=== PATIENT | female | born 2000 | race Caucasian/White ===

== ENCOUNTER 2020-09-04 18:30 | Emergency (ER) | payer OTHER ==
[~2020-09-04] VITALS: Ht 157.5 cm; Wt 64.7 kg
[2020-09-04 22:11] LABS: BASO # 0.1 10^3/uL (0.0-0.2); BASO % 0.5 % (0.0-1.0); EOS # 0.1 10^3/uL (0.0-0.5); EOS % 0.9 % (0.0-3.0); HEMATOCRIT 45.1 % (36.0-47.0); HEMOGLOBIN 14.8 g/dl (12.0-15.5); LYMPH # 2.2 10^3/uL (1.5-5.0); LYMPH % 19.9 % (24.0-44.0); MEAN CORPUSCULAR HEMOGLOBIN 30.8 pg (27.0-33.0); MEAN CORPUSCULAR HGB CONC 32.8 g/dl (32.0-36.5); MEAN CORPUSCULAR VOLUME 93.8 fl (80.0-96.0); MONO # 0.7 10^3/uL (0.0-0.8); MONO % 6.2 % (2.0-8.0); NEUTROPHILS # 7.8 10^3/uL (1.5-8.5); NEUTROPHILS % 71.9 % (36.0-66.0); PLATELET COUNT, AUTOMATED 283 10^3/uL (150-450); RED BLOOD COUNT 4.81 10^6/uL (4.00-5.40); WHITE BLOOD COUNT 10.8 10^3/uL (4.0-10.0)
[2020-09-04 22:30] LABS: HCG, SERUM QUALITATIVE NEGATIVE (NEGATIVE)
[2020-09-04 22:36] LABS: ALT/SGPT 26 U/L (12-78); BILIRUBIN,DIRECT 0.1 MG/DL (0.0-0.2); BILIRUBIN,TOTAL 0.3 MG/DL (0.2-1.0); BLOOD UREA NITROGEN 14 MG/DL (7-18); CALCIUM LEVEL 9.4 MG/DL (8.5-10.1); CARBON DIOXIDE LEVEL 31 MEQ/L (21-32); CHLORIDE LEVEL 108 MEQ/L (98-107); CREATININE FOR GFR 0.85 MG/DL (0.55-1.30); GLUCOSE, FASTING 84 MG/DL (70-100); LIPASE 129 U/L (73-393); SODIUM LEVEL 144 MEQ/L (136-145); TOTAL PROTEIN 7.5 GM/DL (6.4-8.2)
[2020-09-04 23:35] VITALS: BP 122/79
== END 2020-09-05 00:12 | disposition home or self-care (01) ==
LOC: M ED 18:30
DX: N93.9 Abnormal uterine and vaginal bleeding, unspecified (principal)

== ENCOUNTER 2020-09-05 09:27 | Emergency (ER) | payer OTHER ==
[~2020-09-05] VITALS: Ht 157.5 cm; Wt 65.3 kg
[2020-09-05 11:49] LABS: BASO % 0.4 % (0.0-1.0); EOS # 0.1 10^3/uL (0.0-0.5); EOS % 0.6 % (0.0-3.0); HEMOGLOBIN 14.6 g/dl (12.0-15.5); LYMPH # 1.7 10^3/uL (1.5-5.0); LYMPH % 15.8 % (24.0-44.0); MEAN CORPUSCULAR HEMOGLOBIN 31.1 pg (27.0-33.0); MEAN CORPUSCULAR HGB CONC 33.2 g/dl (32.0-36.5); MEAN CORPUSCULAR VOLUME 93.6 fl (80.0-96.0); MONO # 0.7 10^3/uL (0.0-0.8); MONO % 6.8 % (2.0-8.0); NEUTROPHILS # 7.9 10^3/uL (1.5-8.5); NEUTROPHILS % 75.6 % (36.0-66.0); PLATELET COUNT, AUTOMATED 287 10^3/uL (150-450); WHITE BLOOD COUNT 10.4 10^3/uL (4.0-10.0)
[2020-09-05 12:15] LABS: BLOOD UREA NITROGEN 16 MG/DL (7-18); CALCIUM LEVEL 9.3 MG/DL (8.5-10.1); CARBON DIOXIDE LEVEL 30 MEQ/L (21-32); CHLORIDE LEVEL 108 MEQ/L (98-107); CREATININE FOR GFR 0.83 MG/DL (0.55-1.30); GLUCOSE, FASTING 64 MG/DL (70-100); HCG, SERUM QUANTITATIVE < 1.0 MIU/ML; POTASSIUM SERUM 4.8 MEQ/L (3.5-5.1); SODIUM LEVEL 145 MEQ/L (136-145)
--- NOTE | 2020-09-05 13:19 | REP ---
INDICATION: vaginal bleeding, pelvic pain COMPARISON: None. TECHNIQUE: Transabdominal pelvic ultrasound followed by transvaginal examination for better evaluation of the endometrium and adnexa with color Doppler evaluation of the ovaries. FINDINGS: Bladder is empty. Normal anteverted uterus measures 6.9 x 3.5 x 3.0 cm. The endometrial complex measures 6 mm thickness. No discrete uterine or endometrial abnormalities are appreciated. Bilateral ovaries are normal in appearance and vascularity without evidence for torsion. Right ovary measures 4.0 x 1.5 x 2.9 cm; R I = 0.56. Left ovary measures 4.4 x 2.0 x 2.4 cm; R I = 0.52. Small amount of free fluid in the pelvis is nonspecific and likely physiologic. IMPRESSION: Essentially normal pelvic ultrasound. <Electronically signed by Luis Miguel Walsh > 09/05/20 [id number]
[2020-09-05 14:06] LABS: GC DNA AMPLIFICATION NEGATIVE (NEGATIVE)
[2020-09-05 17:42] VITALS: BP 142/78
== END 2020-09-05 17:44 | disposition home or self-care (01) ==
LOC: M ED 09:27
DX: N93.9 Abnormal uterine and vaginal bleeding, unspecified (principal); R10.2 Pelvic and perineal pain

== ENCOUNTER 2020-10-24 15:27 | Emergency (ER) | payer OTHER ==
[~2020-10-24] VITALS: Ht 160 cm; Wt 63.6 kg
[2020-10-24 17:54] LABS: GC DNA AMPLIFICATION NEGATIVE (NEGATIVE)
[2020-10-24] MEDS ORDERED: PYRI1TAB5 PO (18:49)
[2020-10-24] MEDS ORDERED: MACR100C43 PO (18:49)
[2020-10-24] MEDS ORDERED: PHENAZOPYRIDINE 100 MG TAB PO ONE (18:50)
[2020-10-24] MEDS ORDERED: NITROFURANTOIN (MACROBID) 100 MG CAP PO ONE (18:50)
[2020-10-24 19:01] VITALS: BP 107/78
== END 2020-10-24 19:04 | disposition home or self-care (01) ==
LOC: M ED 15:27
DX: N39.0 Urinary tract infection, site not specified (principal)

== ENCOUNTER 2020-11-10 09:23 | Emergency (ER) | payer OTHER ==
[~2020-11-10] VITALS: Ht 157.5 cm; Wt 66.7 kg
[~2020-11-10 09:23] MED LIST: MACR100C43 PO; PYRI1TAB5 PO
[2020-11-10 11:05] LABS: BASO # 0.1 10^3/uL (0.0-0.2); BASO % 0.5 % (0.0-1.0); EOS # 0.1 10^3/uL (0.0-0.5); EOS % 0.9 % (0.0-3.0); LYMPH # 1.7 10^3/uL (1.5-5.0); LYMPH % 17.9 % (24.0-44.0); MEAN CORPUSCULAR HEMOGLOBIN 30.3 pg (27.0-33.0); MEAN CORPUSCULAR HGB CONC 32.6 g/dl (32.0-36.5); MEAN CORPUSCULAR VOLUME 93.1 fl (80.0-96.0); MONO # 0.7 10^3/uL (0.0-0.8); MONO % 7.9 % (2.0-8.0); NEUTROPHILS # 6.8 10^3/uL (1.5-8.5); NEUTROPHILS % 72.1 % (36.0-66.0); PLATELET COUNT, AUTOMATED 293 10^3/uL (150-450); RED BLOOD COUNT 4.62 10^6/uL (4.00-5.40); WHITE BLOOD COUNT 9.4 10^3/uL (4.0-10.0)
[2020-11-10 11:06] LABS: APPEARANCE, URINE HAZY (CLEAR); BACTERIA, URINE AUTO NEGATIVE (NEGATIVE); BILIRUBIN, URINE AUTO NEGATIVE (NEGATIVE); BLOOD, URINE BLOOD NEGATIVE (NEGATIVE); COLOR, URINE YELLOW (YELLOW); GLUCOSE, URINE (UA) AUTO NEGATIVE (NEGATIVE); KETONE, URINE AUTO NEGATIVE (NEGATIVE); LEUKOCYTE ESTERASE, URINE AUTO 1+ (NEGATIVE); MUCUS, URINE SMALL (NEGATIVE); NITRITE, URINE AUTO NEGATIVE (NEGATIVE); PROTEIN, URINE AUTO NEGATIVE (NEGATIVE); RBC, URINE AUTO 1 /HPF (0-3); SPECIFIC GRAVITY URINE AUTO 1.024 (1.002-1.035); SQUAMOUS EPITHELIAL CELL UR AU 9 /HPF (0-6); UROBILINOGEN, URINE AUTO 0.2 mg/dL (0.0-2.0); WBC, URINE AUTO 1 /HPF (0-3)
[2020-11-10 12:07] VITALS: BP 114/66
== END 2020-11-10 12:16 | disposition home or self-care (01) ==
LOC: M ED 09:23
DX: O26.91 Pregnancy related conditions, unspecified, first trimester (principal); Z3A.00 Weeks of gestation of pregnancy not specified

== ENCOUNTER → 2020-11-12 | Outpatient (CLI) | payer OTHER | LOC: M LAB 11:29 | PROVIDERS: ATTEND Physician Assistant | DX: Z32.00 Encounter for pregnancy test, result unknown (principal) ==

== ENCOUNTER 2020-11-27 10:10 | Emergency (ER) | payer OTHER ==
[~2020-11-27] VITALS: Ht 157.5 cm; Wt 65.5 kg
[2020-11-27 12:37] LABS: BASO % 0.3 % (0.0-1.0); EOS % 0.4 % (0.0-3.0); HEMATOCRIT 41.8 % (36.0-47.0); HEMOGLOBIN 14.1 g/dl (12.0-15.5); LYMPH # 1.7 10^3/uL (1.5-5.0); LYMPH % 15.9 % (24.0-44.0); MEAN CORPUSCULAR HEMOGLOBIN 30.7 pg (27.0-33.0); MEAN CORPUSCULAR HGB CONC 33.7 g/dl (32.0-36.5); MEAN CORPUSCULAR VOLUME 90.9 fl (80.0-96.0); MONO # 0.8 10^3/uL (0.0-0.8); NEUTROPHILS # 8.3 10^3/uL (1.5-8.5); NEUTROPHILS % 75.7 % (36.0-66.0); PLATELET COUNT, AUTOMATED 298 10^3/uL (150-450)
--- NOTE | 2020-11-27 14:00 | REP ---
INDICATION: pelvic pain. COMPARISON: None. TECHNIQUE: Emergency 1st trimester obstetric sonography. Transabdominal and transvaginal scanning are included. FINDINGS: Uterine dimensions are 7.3 x 4.9 x 7.3 cm. A single living intrauterine gestation is seen. [place]-rump length of the embryonic pole is 5.3 mm. This corresponds with a gestational age estimate of 6 weeks 3 days. heart rate is recorded at 132 beats per minute. Mean sac size diameter is 20 mm. No complication is identified. Normal ovaries are seen bilaterally. Right ovary measures 3.4 x 2.3 x 1.7 cm. It is Doppler flow is present resistive index 0.58. The left ovary measures 2.8 x 1.7 x 2.5 cm. It is Doppler flow is normal with resistive index 0.47. IMPRESSION: Single living intrauterine gestation at 6 weeks 3 days by crown-rump length. KASH by sonography July 18, 2021. No complication is seen. heart rate is recorded at 132 beats per minute. <Electronically signed by Carlitos Wilson > 11/27/20 [id number]
[2020-11-27 15:03] VITALS: BP 110/71
== END 2020-11-27 15:05 | disposition home or self-care (01) ==
LOC: M ED 10:10
DX: O26.891 Other specified pregnancy related conditions, first trimester (principal); Z3A.01 Less than 8 weeks gestation of pregnancy

== ENCOUNTER 2021-04-07 22:40 | Outpatient (CLI) | payer OTHER ==
[~2021-04-07] VITALS: Ht 157.5 cm; Wt 68.9 kg
[2021-04-07 23:08] VITALS: BP 127/70
[2021-04-08] MEDS ORDERED: CYCLOBENZAPRINE 10MG TABLET PO ONE (02:10)
== END 2021-04-08 02:34 | disposition home or self-care (01) ==
LOC: M LDO 22:40
PROVIDERS: ATTEND Obstetrics & Gynecology
DX: O26.892 Other specified pregnancy related conditions, second trimester (principal); M54.31 Sciatica, right side; Z3A.26 26 weeks gestation of pregnancy; R25.2 Cramp and spasm
CPT/HCPCS: 59025; G0378; G0463

== ENCOUNTER 2021-05-19 15:01 | Outpatient (CLI) | payer OTHER ==
[~2021-05-19] VITALS: Ht 157.5 cm; Wt 70.8 kg
[2021-05-19 15:13] VITALS: BP 135/82
[2021-05-19] MEDS ORDERED: PRENTAB9 PO (15:23)
[2021-05-19 16:12] VITALS: BP 132/75
[2021-05-19] MEDS ORDERED: ONDANSETRON 4MG/2ML VIAL IV PRN (16:25)
[2021-05-19] MEDS ORDERED: PENICILLIN G POTASSIUM IV 5 MU in D5W MINI-BAG PLUS 100 ML IV ONE (16:45)
[2021-05-19] MEDS ORDERED: MAG SULF IV ONE (16:45)
[2021-05-19] MEDS ORDERED: BETAMETHASONE SOLUSPAN 6MG/ML 5ML VIAL (J0702 PER 3MG) IM SCH (17:00)
[2021-05-19] MEDS ORDERED: INDOMETHACIN 25 MG CAP PO ONE (17:00)
[2021-05-19 17:08] LABS: HEMATOCRIT 34.7 % (36.0-47.0); HEMOGLOBIN 11.8 g/dl (12.0-15.5); MEAN CORPUSCULAR HEMOGLOBIN 30.6 pg (27.0-33.0); MEAN CORPUSCULAR VOLUME 89.9 fl (80.0-96.0); PLATELET COUNT, AUTOMATED 245 10^3/uL (150-450); RED BLOOD COUNT 3.86 10^6/uL (4.00-5.40); WHITE BLOOD COUNT 13.7 10^3/uL (4.0-10.0)
[2021-05-19] MEDS ORDERED: MAG Sulf (OBGYN) 20GM/500ML 20,000 MG in IV 1 EA IV SCH (17:15)
[2021-05-19 17:17] LABS: APPEARANCE, URINE HAZY (CLEAR); BACTERIA, URINE AUTO NEGATIVE (NEGATIVE); BILIRUBIN, URINE AUTO NEGATIVE (NEGATIVE); BLOOD, URINE BLOOD NEGATIVE (NEGATIVE); COLOR, URINE YELLOW (YELLOW); GLUCOSE, URINE (UA) AUTO NEGATIVE (NEGATIVE); KETONE, URINE AUTO 2+ mg/dL (NEGATIVE); LEUKOCYTE ESTERASE, URINE AUTO NEGATIVE (NEGATIVE); MUCUS, URINE MODERATE (NEGATIVE); NITRITE, URINE AUTO NEGATIVE (NEGATIVE); PROTEIN, URINE AUTO NEGATIVE (NEGATIVE); RBC, URINE AUTO 1 /HPF (0-3); SPECIFIC GRAVITY URINE AUTO 1.023 (1.002-1.035); SQUAMOUS EPITHELIAL CELL UR AU 3 /HPF (0-6); UROBILINOGEN, URINE AUTO 0.2 mg/dL (0.0-2.0); WBC, URINE AUTO 1 /HPF (0-3)
[2021-05-19] MEDS ORDERED: PENICILLIN G POTASSIUM IV 2.5 MU in IV 1 EA IV SCH (21:00)
== END 2021-05-19 18:35 | disposition short-term general hospital (02) ==
LOC: M LDO 15:01
PROVIDERS: ATTEND Obstetrics & Gynecology
DX: O60.03 Preterm labor without delivery, third trimester (principal); Z3A.31 31 weeks gestation of pregnancy
CPT/HCPCS: 59025; 81001; 85027; 86780; 86850; 86900; 86901; 87088; 87186; 87340; 87426; 96372; 96374; G0463; J0702; J2540; J3475

== ENCOUNTER 2021-05-21 23:01 | Outpatient (CLI) | payer OTHER ==
[~2021-05-21] VITALS: Ht 157.5 cm; Wt 70.0 kg
[~2021-05-21 23:01] MED LIST changes: +PRENTAB9 PO
[2021-05-21] MEDS ORDERED: HOME MED LIST COMPLETE! XX SCH (23:35)
[2021-05-21] MEDS ORDERED: ACETAMINOPHEN 500 MG TAB PO ONE (23:45)
[2021-05-21 23:50] VITALS: BP 101/44
[2021-05-21 23:56] LABS: APPEARANCE, URINE HAZY (CLEAR); BACTERIA, URINE AUTO 1+ (NEGATIVE); BILIRUBIN, URINE AUTO NEGATIVE (NEGATIVE); BLOOD, URINE BLOOD NEGATIVE (NEGATIVE); COLOR, URINE YELLOW (YELLOW); GLUCOSE, URINE (UA) AUTO NEGATIVE (NEGATIVE); KETONE, URINE AUTO NEGATIVE (NEGATIVE); LEUKOCYTE ESTERASE, URINE AUTO 3+ (NEGATIVE); MUCUS, URINE SMALL (NEGATIVE); NITRITE, URINE AUTO NEGATIVE (NEGATIVE); PROTEIN, URINE AUTO NEGATIVE (NEGATIVE); RBC, URINE AUTO 5 /HPF (0-3); SQUAMOUS EPITHELIAL CELL UR AU 14 /HPF (0-6); UROBILINOGEN, URINE AUTO 0.2 mg/dL (0.0-2.0); WBC, URINE AUTO 8 /HPF (0-3)
[2021-05-22 01:22] LABS: HEMOGLOBIN 11.6 g/dl (12.0-15.5); MEAN CORPUSCULAR HEMOGLOBIN 30.1 pg (27.0-33.0); MEAN CORPUSCULAR HGB CONC 33.1 g/dl (32.0-36.5); MEAN CORPUSCULAR VOLUME 90.7 fl (80.0-96.0); PLATELET COUNT, AUTOMATED 225 10^3/uL (150-450); RED BLOOD COUNT 3.86 10^6/uL (4.00-5.40); WHITE BLOOD COUNT 12.4 10^3/uL (4.0-10.0)
[2021-05-22 04:33] VITALS: BP 124/57
[2021-05-22] MEDS: PIPERACILLIN/TAZOBACTAM SOD 2.25 GM in D5W MINI-BAG PLUS 50 ML IV SCH ×2 (05:48→06:02)
[2021-05-22 06:08] VITALS: BP 97/55
[2021-05-22 07:55] VITALS: BP 125/73
== END 2021-05-22 08:10 | disposition home or self-care (01) ==
LOC: M LDO 23:01
PROVIDERS: ATTEND Obstetrics & Gynecology
DX: O26.893 Other specified pregnancy related conditions, third trimester (principal); R25.2 Cramp and spasm; Z3A.32 32 weeks gestation of pregnancy; R00.2 Palpitations; O99.820 Streptococcus B carrier state complicating pregnancy; Z20.822 Contact with and (suspected) exposure to COVID-19
CPT/HCPCS: 59025; 76815; 76817; 76819; 76820; 81001; 85027; 87086; 87798; 96360; 96361; G0463; J2543

== ENCOUNTER 2021-07-08 02:42 | Inpatient (IN) | payer OTHER ==
[~2021-07-08] VITALS: Ht 157.5 cm; Wt 71.9 kg
[2021-07-08] VITALS (15 sets, daily range): BP systolic 95–138; BP diastolic 53–91
[2021-07-08] MEDS ORDERED: HOME MED LIST COMPLETE! XX SCH (02:50)
[2021-07-08] MEDS ORDERED: LACTATED RINGER'S 1000 ML IV STA (03:25)
[2021-07-08] MEDS ORDERED: LR 1,000 ML IV SCH (03:25)
[2021-07-08] MEDS ORDERED: TRANEXAMIC ACID INJection 1,000 MG in NS 100 ML IV PRN (03:25)
[2021-07-08] MEDS ORDERED: CARBOPROST TROMETHAMINE 250 MCG/ML AMP IM PRN (03:25)
[2021-07-08] MEDS ORDERED: OXYTOCIN DRIP 30 UNITS in IV 1 EA IV PRN ×4 (03:25)
[2021-07-08] MEDS ORDERED: PENICILLIN G POTASSIUM IV 5 MU in D5W MINI-BAG PLUS 100 ML IV STA (03:25)
[2021-07-08] MEDS ORDERED: METHYLERGONOVINE MALEATE 0.2 MG/ML VIAL (J2210) IM PRN (03:25)
[2021-07-08] MEDS ORDERED: LIDOCAINE 1% MDV 20ML VIAL INFIL PRN (03:25)
[2021-07-08 03:43] LABS: HEMATOCRIT 34.3 % (36.0-47.0); HEMOGLOBIN 11.6 g/dl (12.0-15.5); MEAN CORPUSCULAR HGB CONC 33.8 g/dl (32.0-36.5); MEAN CORPUSCULAR VOLUME 88.6 fl (80.0-96.0); PLATELET COUNT, AUTOMATED 220 10^3/uL (150-450); RED BLOOD COUNT 3.87 10^6/uL (4.00-5.40); WHITE BLOOD COUNT 19.5 10^3/uL (4.0-10.0)
[2021-07-08] MEDS ORDERED: FENTANYL 2MCG/ML ROPIVACAINE 0.2% IN 0.9% NACL 100ML IVBAG As Ordered ONE (04:47)
[2021-07-08] MEDS ORDERED: ONDANSETRON 4MG/2ML VIAL IV PRN (04:55)
[2021-07-08] MEDS ORDERED: REFRIGERATOR IV KEYS XX PRN (04:55)
[2021-07-08] MEDS ORDERED: LACTATED RINGER'S 1000 ML IV PRN (04:55)
[2021-07-08] MEDS ORDERED: FENTANYL/ROPIVACAINE/NACL BAG 100 ML EPIDURAL SCH (04:55)
[2021-07-08] MEDS ORDERED: ePHEDrine SULFATE 25 MG/5 ML(5MG/ML) SYRINGE IV PRN (04:55)
[2021-07-08] MEDS ORDERED: EPIDURAL COMMENT XX SCH (04:55)
[2021-07-08] MEDS ORDERED: diphenhydrAMINE 50MG/ML VIAL (J1200) IV PRN (04:55)
[2021-07-08] MEDS ORDERED: NALOXONE INJ 0.4MG/1ML VIAL (J2310 PER 1MG) IV PRN (04:55)
[2021-07-08] MEDS ORDERED: EPIDURAL/PCA KEYS XX PRN (04:55)
[2021-07-08] MEDS ORDERED: PENICILLIN G POTASSIUM IV 2.5 MU in IV 1 EA IV SCH (08:00)
[2021-07-08] MEDS ORDERED: MOM 30ML SUSPENSION UDC PO PRN (11:05)
[2021-07-08] MEDS ORDERED: IBUPROFEN 800 MG TAB PO PRN (11:05)
[2021-07-08] MEDS ORDERED: MEASLES,MUMPS,RUBELLA VACCINE INJ (MMR-II) (90707) SC SCH (11:05)
[2021-07-08] MEDS ORDERED: OXYTOCIN DRIP 30 UNITS in IV 1 EA IV SCH (11:05)
[2021-07-08] MEDS ORDERED: PROMETHAZINE 25 MG TAB PO PRN (11:05)
[2021-07-08] MEDS ORDERED: DIBUCAINE 1% OINTMENT 30GM TOP PRN (11:05)
[2021-07-08] MEDS ORDERED: DOCUSATE SODIUM 100MG CAPSULE PO PRN (11:05)
[2021-07-08] MEDS ORDERED: GENTAMICIN IV ONE (11:40)
[2021-07-08] MEDS ORDERED: AMPICILLIN SOD 2 GM in D5W MINI-BAG PLUS 100 ML IV ONE (11:40)
[2021-07-08] MEDS ORDERED: FLUID PLACE HOLDER IV ONE (11:40)
[2021-07-08] MEDS: ACETAMINOPHEN 500 MG TAB PO PRN ×2 (11:55→20:59)
[2021-07-08] MEDS ORDERED: GENTAMICIN 360 MG in D5W 50 ML IV ONE (13:00)
[2021-07-08 15:11] LABS: HEMATOCRIT 29.2 % (36.0-47.0); HEMOGLOBIN 9.9 g/dl (12.0-15.5); MEAN CORPUSCULAR HGB CONC 33.9 g/dl (32.0-36.5); MEAN CORPUSCULAR VOLUME 88.5 fl (80.0-96.0); PLATELET COUNT, AUTOMATED 189 10^3/uL (150-450); WHITE BLOOD COUNT 28.1 10^3/uL (4.0-10.0)
[2021-07-08] MEDS: PRENATAL VITAMINS CHEWABLE TABLET PO SCH (18:43)
[2021-07-09 06:00] VITALS: BP 104/61
[2021-07-09 08:30] VITALS: BP 116/64
[2021-07-09] MEDS: PRENATAL VITAMINS CHEWABLE TABLET PO SCH (08:49)
[2021-07-09 17:30] VITALS: BP 100/57
[2021-07-10 05:43] VITALS: BP 120/75
[2021-07-10] MEDS: PRENATAL VITAMINS CHEWABLE TABLET PO SCH (08:31)
[2021-07-10] MEDS ORDERED: BOOSTRIX/ADACEL VACCINE (DIPHTH/PERTUSS/ACELL/TETANUS) 0.5ML SYR IM ONE (09:00)
== END 2021-07-10 12:00 | disposition home or self-care (01) | DRG 807 ==
LOC: M LDO 02:42 → M LDI 03:32 → M OBS 14:25
PROVIDERS: ADMIT Advanced Practice Midwife; ATTEND Advanced Practice Midwife
PROC: 10E0XZZ Delivery of Products of Conception, External Approach (ICD-10-PCS; principal; 2021-07-08)
PROC: 0HQ9XZZ Repair Perineum Skin, External Approach (ICD-10-PCS; 2021-07-08)
PROC: 10907ZC Drainage of Amniotic Fluid, Therapeutic from Products of Conception, Via Natural or Artificial Opening (ICD-10-PCS; 2021-07-08)
DX: O70.0 First degree perineal laceration during delivery (principal); Z37.0 Single live birth; Z3A.38 38 weeks gestation of pregnancy; O99.824 Streptococcus B carrier state complicating childbirth